=== PATIENT | female | born 1985 | race Two or more races ===

== ENCOUNTER 2022-05-23 09:06 | Inpatient (IN) | payer OTHER ==
[~2022-05-23] VITALS: Ht 180.3 cm; Wt 66.7 kg
[2022-05-23] MEDS ORDERED: PRENATAL TABLE1 EAC3 (09:15)
== END 2022-05-25 13:13 | disposition home or self-care (01) | DRG 807 ==
LOC: LDR 09:06 → OB/GYN 09:06
PROVIDERS: ADMIT Obstetrics & Gynecology; ATTEND Obstetrics & Gynecology
PROC: 10E0XZZ Delivery of Products of Conception, External Approach (ICD-10-PCS; principal; 2022-05-23)
PROC: 0KQM0ZZ Repair Perineum Muscle, Open Approach (ICD-10-PCS; 2022-05-23)
PROC: 4A1HXCZ Monitoring of Products of Conception, Cardiac Rate, External Approach (ICD-10-PCS; 2022-05-23)
DX: O70.1 Second degree perineal laceration during delivery (principal); Z37.0 Single live birth; Z3A.38 38 weeks gestation of pregnancy; Z20.822 Contact with and (suspected) exposure to COVID-19